=== PATIENT | female | born 1950 | race Caucasian/White ===

== ENCOUNTER 2020-12-16 08:22 | Inpatient (IN) ==
[2020-12-16] MEDS ORDERED: SODIUM CHLORIDE 0.9% 1,000 ML IV STA (10:27)
[2020-12-16] MEDS ORDERED: ONDANSETRON 4 MG/2 ML VIAL IV STA (10:29)
[2020-12-16] MEDS ORDERED: MORPHINE 4 MG/1 ML VIAL IV ONE (10:29)
[2020-12-16 10:40] LABS: Basophils # 0.1 10*3/uL (0.0-0.2); Basophils % 0.4 % (0.0-0.8); Eosinophils % 0.1 % (0.00-10.9); Hematocrit 42.7 VOL% (35.7-47.0); Hemoglobin 13.8 GM/DL (12.0-16.0); Immature Granulocytes % 0.7 %; Immature Granulocytes Absolute 0.13 #; Lymphocytes # 1.2 10*3/uL (1.4-4.0); Lymphocytes % 6.5 % (21.3-54.2); Mean Corpuscular HGB Conc 32.3 GM/DL (32-36); Mean Corpuscular Volume 92.6 FL (87-102); Mean Platelet Volume 9.3 FL (9.6-12.0); Monocytes % 4.6 % (1.7-12.7); Neutrophils % 87.7 % (38.7-73.9); Platelet Count 341 T/CUMM (130-400); Red Blood Count 4.61 MC/CUMM (3.8-5.5); Red Cell Distribution Width 13.7 % (9.3-17.3); White Blood Count 18.3 T/CUMM (4-12)
[2020-12-16 10:58] LABS: Bacteria,Urine Occasional /HPF (Few); Bilirubin,Urine Negative (Negative); Blood, Urine Negative (Negative); Glucose,Urine (UA) >=500 mg/dL (Negative); Ketones,Urine 20 mg/dL (Negative); Mucus,Urine Few /LPF (Occasional); Nitrite,Urine Negative (Negative); Protein,Urine 30 MG/DL; RBC,Urine 12 /HPF (0-4); Squamous Epithelial Cell,Urine Occasional /HPF (0-10); Urine Appearance CLOUDY (Clear); Urine Color Amber (Yellow); Urine Specific Gravity 1.023 (1.001-1.035)
[2020-12-16 10:59] LABS: Alanine Aminotransferase 22 U/L (13-56); Albumin 3.7 G/DL (3.4-5.0); Alkaline Phosphatase 105 U/L (45-117); Amylase 21 U/L (25-115); Aspartate Amino Transferase 15 U/L (0-37); Blood Urea Nitrogen 13 MG/DL (7-18); Calcium 9.3 MG/DL (8.5-10.1); Carbon Dioxide 29 MMOL/L (21-32); Estimated Glom Filtration Rate 80 ML/MIN; Glucose 296 MG/DL (74-106); Osmolality,Calculated 276.4 MOS/KG (273-304); Potassium 4.2 MMOL/L (3.5-5.1); Sodium 133 MMOL/L (136-145); Total Protein 8.3 G/DL (6.4-8.2)
[2020-12-16] MEDS ORDERED: PIPERACILLIN/TAZOBACTAM 3,375 MG in SODIUM CHLORIDE 0.9% 100 ML IV STA (11:56)
[2020-12-16] MEDS ORDERED: ALBUTEROL/IPRATROPIUM 3 ML NEB RESP TX PRN (13:31)
[2020-12-16] MEDS ORDERED: ONDANSETRON 4 MG/2 ML VIAL IV PRN (13:31)
[2020-12-16] MEDS ORDERED: BISACODYL 5 MG TABLET PO PRN (13:31)
[2020-12-16] MEDS ORDERED: HYDROmorphone 2 MG/1 ML VIAL IV PRN ×2 (13:31)
[2020-12-16] MEDS ORDERED: GLUCAGON 1 MG VIAL IM PRN (13:42)
[2020-12-16] MEDS ORDERED: DEXTROSE 50% 25 GM/50 ML VIAL IV PRN (13:42)
[2020-12-16] MEDS ORDERED: LIDOCAINE 1%/EPI INJ 20 ML VIAL ONE (13:54)
[2020-12-16] MEDS ORDERED: BUPIVACAINE MPF 0.25% 30 ML VIAL ONE (13:54)
[2020-12-16] MEDS ORDERED: TISSUE ADHESIVE 1 EACH APPLICATOR TOP ONE (13:54)
[2020-12-16] MEDS ORDERED: fentaNYL 100 MCG/2 ML VIAL ONE (13:57)
[2020-12-16] MEDS ORDERED: LIDOCAINE 2% 5 ML VIAL ONE (13:57)
[2020-12-16] MEDS ORDERED: ROCURONIUM 50 MG/5 ML VIAL IV ONE (13:57)
[2020-12-16] MEDS ORDERED: propofoL 200 MG/20 ML VIAL IV ONE (13:57)
[2020-12-16] MEDS: LACTATED RINGERS 1,000 ML IV SCH ×2 (14:30→21:11)
[2020-12-16] MEDS ORDERED: SUCCINYLCHOLINE 200 MG/10 ML VIAL ONE (14:46)
[2020-12-16] MEDS ORDERED: ONDANSETRON 4 MG/2 ML VIAL ONE (15:22)
[2020-12-16] MEDS ORDERED: SODIUM CHLORIDE 0.9% 1,000 ML IV ONE (15:22)
[2020-12-16] MEDS ORDERED: PHENYLEPHRINE 1 MG/10 ML SYRINGE IV ONE (15:22)
[2020-12-16] MEDS ORDERED: DEXAMETHASONE 4 MG/1 ML VIAL ONE (15:23)
[2020-12-16] MEDS ORDERED: KETOROLAC 30 MG/1 ML VIAL ONE (15:28)
[2020-12-16] MEDS ORDERED: GLYCOPYRROLATE 0.4 MG/2 ML VIAL ONE (15:29)
[2020-12-16] MEDS ORDERED: NEOSTIGMINE 10 MG/10 ML VIAL ONE (15:30)
[2020-12-16] MEDS ORDERED: SEVOFLURANE 1 UNIT/15 MINUTE INH ONE (15:32)
[2020-12-16] MEDS: INSULIN LISPRO 100 UNIT/ML SUBCUT SCH (17:15)
[2020-12-16] MEDS: PIPERACILLIN/TAZOBACTAM 3,375 MG in SODIUM CHLORIDE 0.9% 100 ML IV SCH (21:12)
[2020-12-16] MEDS: KETOROLAC 15 MG/1 ML VIAL IV PRN (23:26)
[2020-12-17] MEDS: PIPERACILLIN/TAZOBACTAM 3,375 MG in SODIUM CHLORIDE 0.9% 100 ML IV SCH ×3 (05:00→22:16)
[2020-12-17 06:02] LABS: Basophils % 0.1 % (0.0-0.8); Hematocrit 36.2 VOL% (35.7-47.0); Immature Granulocytes % 0.3 %; Immature Granulocytes Absolute 0.04 #; Lymphocytes # 0.9 10*3/uL (1.4-4.0); Lymphocytes % 7.3 % (21.3-54.2); Mean Corpuscular Volume 94.8 FL (87-102); Mean Platelet Volume 9.4 FL (9.6-12.0); Monocytes % 4.1 % (1.7-12.7); Neutrophils % 88.2 % (38.7-73.9); Red Blood Count 3.82 MC/CUMM (3.8-5.5); Red Cell Distribution Width 13.8 % (9.3-17.3)
[2020-12-17 06:21] LABS: Albumin 2.7 G/DL (3.4-5.0); Bilirubin,Total 2.4 MG/DL (0.2-1.0); Calcium 8.3 MG/DL (8.5-10.1); Osmolality,Calculated 282.4 MOS/KG (273-304); Potassium 4.3 MMOL/L (3.5-5.1); Total Protein 6.6 G/DL (6.4-8.2)
[2020-12-17 06:26] LABS: Hemoglobin 11.6 GM/DL (12.0-16.0); Platelet Count 262 T/CUMM (130-400); White Blood Count 12.1 T/CUMM (4-12)
[2020-12-17 07:24] LABS: Band Neutrophils 16 % (0-10); Lymphocytes 4 % (20-55); Segmented Neutrophils 77 % (50-85); Total Cells Counted 100
[2020-12-17 07:25] LABS: Hypochromasia Slight; Microcytosis 1+
[2020-12-17 07:26] LABS: Platelet Estimate Normal
[2020-12-17] MEDS: INSULIN LISPRO 100 UNIT/ML SUBCUT SCH ×3 (09:50→16:03)
[2020-12-17] MEDS: PANTOPRAZOLE 40 MG TABLET PO SCH (09:50)
[2020-12-17] MEDS: KETOROLAC 15 MG/1 ML VIAL IV PRN (09:51)
[2020-12-17] MEDS: LACTATED RINGERS 1,000 ML IV SCH ×3 (12:53→22:22)
[2020-12-18] MEDS: KETOROLAC 15 MG/1 ML VIAL IV PRN ×2 (00:06→15:39)
[2020-12-18] MEDS: PIPERACILLIN/TAZOBACTAM 3,375 MG in SODIUM CHLORIDE 0.9% 100 ML IV SCH ×3 (04:58→20:43)
[2020-12-18 05:25] LABS: Basophils % 0.2 % (0.0-0.8); Eosinophils % 0.1 % (0.00-10.9); Hematocrit 34.4 VOL% (35.7-47.0); Hemoglobin 10.8 GM/DL (12.0-16.0); Immature Granulocytes Absolute 0.13 #; Lymphocytes # 1.1 10*3/uL (1.4-4.0); Lymphocytes % 8.4 % (21.3-54.2); Mean Corpuscular HGB Conc 31.4 GM/DL (32-36); Mean Platelet Volume 9.5 FL (9.6-12.0); Monocytes % 2.5 % (1.7-12.7); Neutrophils % 87.8 % (38.7-73.9); Platelet Count 238 T/CUMM (130-400); Red Blood Count 3.62 MC/CUMM (3.8-5.5); Red Cell Distribution Width 13.5 % (9.3-17.3); White Blood Count 13.4 T/CUMM (4-12)
[2020-12-18 05:58] LABS: Calcium 8.5 MG/DL (8.5-10.1); Osmolality,Calculated 274.5 MOS/KG (273-304); Potassium 3.8 MMOL/L (3.5-5.1)
[2020-12-18 06:10] LABS: Band Neutrophils 6 % (0-10); Hypochromasia Slight; Lymphocytes 6 % (20-55); Microcytosis 1+; Polychromasia Slight; Promyelocytes 1 %; Segmented Neutrophils 84 % (50-85); Total Cells Counted 100
[2020-12-18] MEDS: ACETAMINOPHEN 325 MG TABLET PO PRN (06:37)
[2020-12-18] MEDS: PANTOPRAZOLE 40 MG TABLET PO SCH (08:51)
[2020-12-18] MEDS: INSULIN LISPRO 100 UNIT/ML SUBCUT SCH ×3 (08:53→16:40)
[2020-12-18] MEDS: LACTATED RINGERS 1,000 ML IV SCH (13:50)
[2020-12-18] MEDS: DOCUSATE SODIUM 100 MG CAPSULE PO SCH (20:43)
[2020-12-19] MEDS: LACTATED RINGERS 1,000 ML IV SCH ×3 (00:07→07:32)
[2020-12-19] MEDS: PIPERACILLIN/TAZOBACTAM 3,375 MG in SODIUM CHLORIDE 0.9% 100 ML IV SCH ×3 (04:29→22:01)
[2020-12-19 05:54] LABS: Basophils % 0.4 % (0.0-0.8); Eosinophils # 0.1 10*3/uL (0.0-0.87); Eosinophils % 1.1 % (0.00-10.9); Hemoglobin 10.4 GM/DL (12.0-16.0); Immature Granulocytes % 0.7 %; Immature Granulocytes Absolute 0.08 #; Lymphocytes % 8.5 % (21.3-54.2); Mean Corpuscular HGB Conc 31.5 GM/DL (32-36); Mean Corpuscular Volume 94.8 FL (87-102); Mean Platelet Volume 9.6 FL (9.6-12.0); Monocytes % 4.4 % (1.7-12.7); Neutrophils % 84.9 % (38.7-73.9); Platelet Count 255 T/CUMM (130-400); Red Blood Count 3.48 MC/CUMM (3.8-5.5); Red Cell Distribution Width 13.6 % (9.3-17.3); White Blood Count 11.4 T/CUMM (4-12)
[2020-12-19 06:11] LABS: Calcium 8.8 MG/DL (8.5-10.1); Osmolality,Calculated 289.8 MOS/KG (273-304); Potassium 3.9 MMOL/L (3.5-5.1)
[2020-12-19 06:19] LABS: Band Neutrophils 1 % (0-10); Hypochromasia 1+; Lymphocytes 4 % (20-55); Microcytosis 1+; Platelet Estimate Adequate; Segmented Neutrophils 92 % (50-85); Total Cells Counted 100
[2020-12-19] MEDS: DOCUSATE SODIUM 100 MG CAPSULE PO SCH ×2 (08:59→22:01)
[2020-12-19] MEDS: amLODIPine 10 MG TABLET PO SCH (08:59)
[2020-12-19] MEDS: OXYBUTYNIN 5 MG TABLET PO SCH (08:59)
[2020-12-19] MEDS: PANTOPRAZOLE 40 MG TABLET PO SCH (08:59)
[2020-12-19] MEDS: INSULIN LISPRO 100 UNIT/ML SUBCUT SCH ×3 (09:00→16:32)
[2020-12-19] MEDS: POLYETHYLENE GLYCOL POWDER 17 GM PACK PO SCH (09:00)
[2020-12-19] MEDS: SERTRALINE 50 MG TABLET PO SCH (09:00)
[2020-12-19] MEDS ORDERED: hydrALAZINE 25 MG TABLET PO SCH (09:00)
[2020-12-19] MEDS: ATORVASTATIN 10 MG TABLET PO SCH (09:04)
[2020-12-19] MEDS ORDERED: TUBERCULIN SKIN TEST 0.1 ML SYRINGE INTRADERM ONE (10:43)
[2020-12-19] MEDS: ACETAMINOPHEN 325 MG TABLET PO PRN (14:32)
[2020-12-19] MEDS: GLIMEPIRIDE 2 MG TABLET PO SCH (16:32)
[2020-12-19] MEDS ORDERED: INSULIN GLARGINE 100 UNIT/ML SUBCUT SCH (21:00)
[2020-12-19] MEDS ORDERED: MECLIZINE 25 MG TABLET PO SCH (21:00)
[2020-12-19] MEDS ORDERED: DOCUSATE/SENNA 50-8.6 MG TABLET PO SCH (21:00)
[2020-12-20 06:23] LABS: Basophils % 0.4 % (0.0-0.8); Eosinophils # 0.1 10*3/uL (0.0-0.87); Eosinophils % 1.1 % (0.00-10.9); Hematocrit 31.7 VOL% (35.7-47.0); Hemoglobin 10.7 GM/DL (12.0-16.0); Immature Granulocytes % 1.3 %; Immature Granulocytes Absolute 0.15 #; Lymphocytes # 1.1 10*3/uL (1.4-4.0); Lymphocytes % 9.6 % (21.3-54.2); Mean Corpuscular HGB Conc 33.8 GM/DL (32-36); Mean Corpuscular Volume 91.1 FL (87-102); Mean Platelet Volume 9.3 FL (9.6-12.0); Monocytes % 6.2 % (1.7-12.7); Neutrophils % 81.4 % (38.7-73.9); Platelet Count 283 T/CUMM (130-400); Red Blood Count 3.48 MC/CUMM (3.8-5.5); Red Cell Distribution Width 13.7 % (9.3-17.3); White Blood Count 11.4 T/CUMM (4-12)
[2020-12-20 06:38] LABS: Albumin 2.1 G/DL (3.4-5.0); Bilirubin,Total 1.6 MG/DL (0.2-1.0); Calcium 8.7 MG/DL (8.5-10.1); Osmolality,Calculated 278.1 MOS/KG (273-304); Potassium 3.5 MMOL/L (3.5-5.1); Total Protein 6.4 G/DL (6.4-8.2)
[2020-12-20 06:52] LABS: Hypochromasia 1+; Microcytosis 1+
[2020-12-20 06:53] LABS: Platelet Estimate Normal
[2020-12-20] MEDS: PIPERACILLIN/TAZOBACTAM 3,375 MG in SODIUM CHLORIDE 0.9% 100 ML IV SCH (09:28)
[2020-12-20] MEDS: GLIMEPIRIDE 2 MG TABLET PO SCH (09:28)
[2020-12-20] MEDS: DOCUSATE SODIUM 100 MG CAPSULE PO SCH (09:28)
[2020-12-20] MEDS: PANTOPRAZOLE 40 MG TABLET PO SCH (09:29)
[2020-12-20] MEDS: ATORVASTATIN 10 MG TABLET PO SCH (09:29)
[2020-12-20] MEDS: SERTRALINE 50 MG TABLET PO SCH (09:29)
[2020-12-20] MEDS: amLODIPine 10 MG TABLET PO SCH (09:29)
[2020-12-20] MEDS: OXYBUTYNIN 5 MG TABLET PO SCH (09:29)
[2020-12-20] MEDS: INSULIN LISPRO 100 UNIT/ML SUBCUT SCH (09:29)
[2020-12-20] MEDS: POLYETHYLENE GLYCOL POWDER 17 GM PACK PO SCH (09:30)
[2020-12-20] MEDS: ACETAMINOPHEN 325 MG TABLET PO PRN (10:41)
[2020-12-20 11:28] VITALS: BP 163/61
== END 2020-12-20 13:33 | disposition swing bed (61) | DRG 339 ==
LOC: N.ED 08:22 → N.EDINP 13:31 → N.3E 14:35
PROVIDERS: ADMIT Surgery; ATTEND Surgery

== ENCOUNTER 2021-01-02 00:36 | Inpatient (IN) ==
[2021-01-02] MEDS ORDERED: SODIUM CHLORIDE 0.9% 500 ML IV STA (01:06)
[2021-01-02] MEDS ORDERED: PIPERACILLIN/TAZOBACTAM 3,375 MG in SODIUM CHLORIDE 0.9% 100 ML IV STA (01:06)
[2021-01-02] MEDS ORDERED: ALBUTEROL/IPRATROPIUM 3 ML NEB RESP TX STA (01:06)
[2021-01-02] MEDS ORDERED: ACETAMINOPHEN 500 MG TABLET PO STA (01:06)
[2021-01-02 01:10] LABS: Basophils # 0.1 10*3/uL (0.0-0.2); Basophils % 0.4 % (0.0-0.8); Eosinophils % 0.1 % (0.00-10.9); Hematocrit 32.5 VOL% (35.7-47.0); Hemoglobin 10.3 GM/DL (12.0-16.0); Immature Granulocytes % 0.8 %; Immature Granulocytes Absolute 0.16 #; Lymphocytes # 0.4 10*3/uL (1.4-4.0); Lymphocytes % 2.3 % (21.3-54.2); Mean Corpuscular HGB Conc 31.7 GM/DL (32-36); Mean Corpuscular Volume 92.6 FL (87-102); Mean Platelet Volume 8.9 FL (9.6-12.0); Monocytes % 2.1 % (1.7-12.7); Neutrophils % 94.3 % (38.7-73.9); Platelet Count 537 T/CUMM (130-400); Red Blood Count 3.51 MC/CUMM (3.8-5.5); Red Cell Distribution Width 14.1 % (9.3-17.3); White Blood Count 19.3 T/CUMM (4-12)
[2021-01-02 01:19] LABS: Bilirubin,Total 0.7 MG/DL (0.2-1.0); Calcium 9.1 MG/DL (8.5-10.1); Osmolality,Calculated 271.5 MOS/KG (273-304); Potassium 4.1 MMOL/L (3.5-5.1)
[2021-01-02 01:27] LABS: PT Patient Result 11.1 SECS (10.5-12.0)
[2021-01-02] MEDS ORDERED: ONDANSETRON 4 MG/2 ML VIAL IV STA (01:44)
[2021-01-02] MEDS ORDERED: ONDANSETRON 4 MG/2 ML VIAL ONE (01:45)
[2021-01-02] MEDS ORDERED: ENOXAPARIN 100 MG/ML SYRINGE SUBCUT STA (02:33)
[2021-01-02 02:56] LABS: Anisocytosis Slight; Band Neutrophils 4 % (0-10); Lymphocytes 3 % (20-55); Macrocytosis Slight; Platelet Estimate Increased; Segmented Neutrophils 91 % (50-85); Total Cells Counted 100
[2021-01-02] MEDS ORDERED: DEXTROSE 50% 25 GM/50 ML VIAL IV PRN (03:40)
[2021-01-02] MEDS ORDERED: GLUCAGON 1 MG VIAL IM PRN (03:40)
[2021-01-02] MEDS ORDERED: ONDANSETRON 4 MG TABLET PO PRN (03:40)
[2021-01-02] MEDS ORDERED: ACETAMINOPHEN 500 MG TABLET PO PRN (03:52)
[2021-01-02] MEDS: SODIUM CHLORIDE 0.9% 1,000 ML IV SCH ×2 (04:00→17:39)
[2021-01-02] MEDS: ALBUTEROL/IPRATROPIUM 3 ML NEB RESP TX SCH ×6 (04:01→23:40)
[2021-01-02 04:32] LABS: Bilirubin,Urine Negative (Negative); Blood, Urine Negative (Negative); Glucose,Urine (UA) 50 mg/dL (Negative); Ketones,Urine Negative (Negative); Mucus,Urine Occasional /LPF (Occasional); Nitrite,Urine Negative (Negative); Protein,Urine Negative; RBC,Urine 1 /HPF (0-4); Squamous Epithelial Cell,Urine Occasional /HPF (0-10); Urine Appearance CLEAR (Clear); Urine Color Yellow (Yellow); Urine Specific Gravity 1.009 (1.001-1.035); Urine Urobilinogen < 2.0 EU/DL (0.2-1.0)
[2021-01-02 06:05] LABS: Basophils # 0.1 10*3/uL (0.0-0.2); Basophils % 0.3 % (0.0-0.8); Hematocrit 29.9 VOL% (35.7-47.0); Hemoglobin 9.7 GM/DL (12.0-16.0); Immature Granulocytes % 0.7 %; Immature Granulocytes Absolute 0.15 #; Lymphocytes % 4.6 % (21.3-54.2); Mean Corpuscular HGB Conc 32.4 GM/DL (32-36); Monocytes % 4.6 % (1.7-12.7); Neutrophils % 89.8 % (38.7-73.9); Platelet Count 494 T/CUMM (130-400); Red Blood Count 3.25 MC/CUMM (3.8-5.5); Red Cell Distribution Width 14.2 % (9.3-17.3); White Blood Count 22.5 T/CUMM (4-12)
[2021-01-02] MEDS: INSULIN REGULAR 100 UNIT/ML SUBCUT SCH ×3 (06:17→19:03)
[2021-01-02 06:23] LABS: Albumin 1.8 G/DL (3.4-5.0); Bilirubin,Total 0.9 MG/DL (0.2-1.0); Calcium 8.9 MG/DL (8.5-10.1); Total Protein 7.4 G/DL (6.4-8.2)
[2021-01-02 06:27] LABS: Hypochromasia 1+; Lymphocytes 5 % (20-55); Microcytosis 1+; Platelet Estimate Adequate; Segmented Neutrophils 92 % (50-85); Total Cells Counted 100
[2021-01-02] MEDS: GLIMEPIRIDE 2 MG TABLET PO SCH ×2 (08:46→17:38)
[2021-01-02] MEDS: MAGNESIUM GLUCONATE 500 MG TABLET PO SCH (08:46)
[2021-01-02] MEDS: MELOXICAM 7.5 MG TABLET PO SCH (08:46)
[2021-01-02] MEDS: OXYBUTYNIN 5 MG TABLET PO SCH (08:47)
[2021-01-02] MEDS: amLODIPine 10 MG TABLET PO SCH (08:47)
[2021-01-02] MEDS: FERROUS SULFATE 325 MG TABLET PO SCH (08:47)
[2021-01-02] MEDS: metFORMIN 500 MG TABLET PO SCH ×2 (08:47→17:38)
[2021-01-02] MEDS: SERTRALINE 25 MG TABLET PO SCH (08:47)
[2021-01-02] MEDS: hydrALAZINE 25 MG TABLET PO SCH ×2 (08:47→21:46)
[2021-01-02] MEDS: PANTOPRAZOLE 40 MG VIAL IV SCH (08:48)
[2021-01-02] MEDS: PIPERACILLIN/TAZOBACTAM 3,375 MG in SODIUM CHLORIDE 0.9% 100 ML IV SCH ×2 (09:49→17:38)
[2021-01-02] MEDS ORDERED: ZINC OXIDE PASTE 113 GM TUBE TOP PRN (13:08)
[2021-01-02] MEDS: MECLIZINE 25 MG TABLET PO SCH (21:46)
[2021-01-02] MEDS: ATORVASTATIN 10 MG TABLET PO SCH (21:46)
[2021-01-02] MEDS: INSULIN GLARGINE 100 UNIT/ML SUBCUT SCH (21:46)
[2021-01-02] MEDS: ENOXAPARIN 40 MG/0.4 ML SYRINGE SUBCUT SCH (21:47)
[2021-01-02] MEDS: DOCUSATE/SENNA 50-8.6 MG TABLET PO SCH (22:49)
[2021-01-03] MEDS: ALBUTEROL/IPRATROPIUM 3 ML NEB RESP TX SCH ×6 (02:40→23:24)
[2021-01-03] MEDS: ALBUMIN 25% 25 GM/100 ML VIAL IV SCH ×3 (02:59→17:27)
[2021-01-03] MEDS: SODIUM CHLORIDE 0.9% 1,000 ML IV SCH ×2 (02:59→13:23)
[2021-01-03] MEDS: PIPERACILLIN/TAZOBACTAM 3,375 MG in SODIUM CHLORIDE 0.9% 100 ML IV SCH ×3 (03:00→18:09)
[2021-01-03] MEDS: INSULIN REGULAR 100 UNIT/ML SUBCUT SCH ×4 (03:02→18:42)
[2021-01-03 06:33] LABS: Basophils # 0.1 10*3/uL (0.0-0.2); Basophils % 0.4 % (0.0-0.8); Eosinophils % 0.2 % (0.00-10.9); Hematocrit 29.4 VOL% (35.7-47.0); Hemoglobin 9.4 GM/DL (12.0-16.0); Immature Granulocytes % 0.5 %; Immature Granulocytes Absolute 0.07 #; Lymphocytes # 1.2 10*3/uL (1.4-4.0); Lymphocytes % 8.7 % (21.3-54.2); Mean Corpuscular Volume 91.6 FL (87-102); Mean Platelet Volume 8.8 FL (9.6-12.0); Monocytes % 7.6 % (1.7-12.7); Neutrophils % 82.6 % (38.7-73.9); Platelet Count 484 T/CUMM (130-400); Red Blood Count 3.21 MC/CUMM (3.8-5.5); Red Cell Distribution Width 14.1 % (9.3-17.3); White Blood Count 13.2 T/CUMM (4-12)
[2021-01-03 06:47] LABS: Calcium 8.9 MG/DL (8.5-10.1); Osmolality,Calculated 266.1 MOS/KG (273-304); Potassium 3.6 MMOL/L (3.5-5.1)
[2021-01-03] MEDS: ONDANSETRON 4 MG/2 ML VIAL IV PRN ×2 (07:22→13:28)
[2021-01-03] MEDS: PANTOPRAZOLE 40 MG VIAL IV SCH (08:58)
[2021-01-03] MEDS ORDERED: DIAZEPAM 5 MG TABLET PO ONE (08:58)
[2021-01-03] MEDS: amLODIPine 10 MG TABLET PO SCH (08:59)
[2021-01-03] MEDS: SERTRALINE 25 MG TABLET PO SCH (08:59)
[2021-01-03] MEDS: OXYBUTYNIN 5 MG TABLET PO SCH (08:59)
[2021-01-03] MEDS: MELOXICAM 7.5 MG TABLET PO SCH (09:00)
[2021-01-03 09:27] LABS: PT Patient Result 11.3 SECS (10.5-12.0)
[2021-01-03] MEDS: metFORMIN 500 MG TABLET PO SCH ×2 (09:53→17:19)
[2021-01-03] MEDS: GLIMEPIRIDE 2 MG TABLET PO SCH ×2 (09:53→17:19)
[2021-01-03] MEDS: ACETAMINOPHEN 325 MG TABLET PO PRN (09:55)
[2021-01-03] MEDS ORDERED: fentaNYL 100 MCG/2 ML VIAL IV ONE (11:30)
[2021-01-03] MEDS ORDERED: fentaNYL 100 MCG/2 ML VIAL ONE (11:39)
[2021-01-03] MEDS ORDERED: MIDAZOLAM 2 MG/2 ML VIAL ONE (11:39)
[2021-01-03] MEDS: MAGNESIUM GLUCONATE 500 MG TABLET PO SCH (17:27)
[2021-01-03] MEDS: FERROUS SULFATE 325 MG TABLET PO SCH (17:27)
[2021-01-03] MEDS: ENOXAPARIN 40 MG/0.4 ML SYRINGE SUBCUT SCH (21:17)
[2021-01-03] MEDS: MECLIZINE 25 MG TABLET PO SCH (21:17)
[2021-01-03] MEDS: ATORVASTATIN 10 MG TABLET PO SCH (21:17)
[2021-01-03] MEDS: DOCUSATE/SENNA 50-8.6 MG TABLET PO SCH (21:17)
[2021-01-04] MEDS: INSULIN GLARGINE 100 UNIT/ML SUBCUT SCH ×2 (00:26→21:15)
[2021-01-04] MEDS: ALBUMIN 25% 25 GM/100 ML VIAL IV SCH (00:29)
[2021-01-04] MEDS: INSULIN REGULAR 100 UNIT/ML SUBCUT SCH ×5 (00:31→23:43)
[2021-01-04] MEDS: SODIUM CHLORIDE 0.9% 1,000 ML IV SCH ×2 (00:31→07:48)
[2021-01-04] MEDS: PIPERACILLIN/TAZOBACTAM 3,375 MG in SODIUM CHLORIDE 0.9% 100 ML IV SCH ×3 (02:45→17:25)
[2021-01-04] MEDS: ALBUTEROL/IPRATROPIUM 3 ML NEB RESP TX SCH ×6 (03:33→23:30)
[2021-01-04] MEDS: GLIMEPIRIDE 2 MG TABLET PO SCH ×2 (07:45→17:28)
[2021-01-04] MEDS: metFORMIN 500 MG TABLET PO SCH ×2 (07:45→17:28)
[2021-01-04 07:51] LABS: Basophils # 0.1 10*3/uL (0.0-0.2); Basophils % 0.5 % (0.0-0.8); Eosinophils # 0.1 10*3/uL (0.0-0.87); Eosinophils % 0.7 % (0.00-10.9); Hematocrit 27.6 VOL% (35.7-47.0); Hemoglobin 8.7 GM/DL (12.0-16.0); Immature Granulocytes % 0.7 %; Immature Granulocytes Absolute 0.12 #; Lymphocytes # 1.8 10*3/uL (1.4-4.0); Mean Corpuscular HGB Conc 31.5 GM/DL (32-36); Mean Corpuscular Volume 93.2 FL (87-102); Mean Platelet Volume 8.8 FL (9.6-12.0); Monocytes % 4.8 % (1.7-12.7); Neutrophils % 83.3 % (38.7-73.9); Platelet Count 354 T/CUMM (130-400); Red Blood Count 2.96 MC/CUMM (3.8-5.5); Red Cell Distribution Width 14.5 % (9.3-17.3); White Blood Count 17.6 T/CUMM (4-12)
[2021-01-04 08:09] LABS: Calcium 8.4 MG/DL (8.5-10.1); Osmolality,Calculated 273.7 MOS/KG (273-304); Potassium 3.4 MMOL/L (3.5-5.1)
[2021-01-04 08:13] LABS: Albumin 2.7 G/DL (3.4-5.0); Bilirubin,Direct 0.2 MG/DL (0.0-0.20); Bilirubin,Indirect 0.6 MG/DL (0.0-1.0); Bilirubin,Total 0.8 MG/DL (0.2-1.0); Total Protein 7.1 G/DL (6.4-8.2)
[2021-01-04] MEDS: PANTOPRAZOLE 40 MG VIAL IV SCH (09:38)
[2021-01-04] MEDS: MELOXICAM 7.5 MG TABLET PO SCH (09:40)
[2021-01-04] MEDS: OXYBUTYNIN 5 MG TABLET PO SCH (09:40)
[2021-01-04] MEDS: MAGNESIUM GLUCONATE 500 MG TABLET PO SCH (09:40)
[2021-01-04] MEDS: SERTRALINE 25 MG TABLET PO SCH (09:40)
[2021-01-04] MEDS: FERROUS SULFATE 325 MG TABLET PO SCH (09:41)
[2021-01-04] MEDS: amLODIPine 10 MG TABLET PO SCH (09:41)
[2021-01-04] MEDS ORDERED: POTASSIUM CHLORIDE 20 MEQ TABLET PO ONE (17:48)
[2021-01-04] MEDS: MECLIZINE 25 MG TABLET PO SCH (21:15)
[2021-01-04] MEDS: ACETAMINOPHEN 325 MG TABLET PO PRN (21:15)
[2021-01-04] MEDS: DOCUSATE/SENNA 50-8.6 MG TABLET PO SCH (21:15)
[2021-01-04] MEDS: ATORVASTATIN 10 MG TABLET PO SCH (21:15)
[2021-01-04] MEDS: ENOXAPARIN 40 MG/0.4 ML SYRINGE SUBCUT SCH (21:15)
[2021-01-05] MEDS: PIPERACILLIN/TAZOBACTAM 3,375 MG in SODIUM CHLORIDE 0.9% 100 ML IV SCH ×3 (01:52→09:45)
[2021-01-05] MEDS: ALBUTEROL/IPRATROPIUM 3 ML NEB RESP TX SCH ×3 (03:38→11:07)
[2021-01-05] MEDS: INSULIN REGULAR 100 UNIT/ML SUBCUT SCH ×2 (05:43→13:19)
[2021-01-05 06:43] LABS: Basophils # 0.1 10*3/uL (0.0-0.2); Basophils % 0.6 % (0.0-0.8); Eosinophils # 0.2 10*3/uL (0.0-0.87); Eosinophils % 1.3 % (0.00-10.9); Hematocrit 29.5 VOL% (35.7-47.0); Hemoglobin 9.3 GM/DL (12.0-16.0); Immature Granulocytes % 0.5 %; Immature Granulocytes Absolute 0.06 #; Lymphocytes # 1.5 10*3/uL (1.4-4.0); Lymphocytes % 13.2 % (21.3-54.2); Mean Corpuscular HGB Conc 31.5 GM/DL (32-36); Mean Corpuscular Volume 93.9 FL (87-102); Mean Platelet Volume 8.8 FL (9.6-12.0); Monocytes % 4.7 % (1.7-12.7); Neutrophils % 79.7 % (38.7-73.9); Platelet Count 393 T/CUMM (130-400); Red Blood Count 3.14 MC/CUMM (3.8-5.5); Red Cell Distribution Width 14.7 % (9.3-17.3); White Blood Count 11.2 T/CUMM (4-12)
[2021-01-05 07:19] LABS: Calcium 8.3 MG/DL (8.5-10.1); Osmolality,Calculated 280.3 MOS/KG (273-304)
[2021-01-05] MEDS: PANTOPRAZOLE 40 MG VIAL IV SCH (08:21)
[2021-01-05] MEDS: MELOXICAM 7.5 MG TABLET PO SCH (08:23)
[2021-01-05] MEDS: FERROUS SULFATE 325 MG TABLET PO SCH (08:23)
[2021-01-05] MEDS: amLODIPine 10 MG TABLET PO SCH (08:23)
[2021-01-05] MEDS: metFORMIN 500 MG TABLET PO SCH (08:23)
[2021-01-05] MEDS: SERTRALINE 25 MG TABLET PO SCH (08:23)
[2021-01-05] MEDS: MAGNESIUM GLUCONATE 500 MG TABLET PO SCH (08:23)
[2021-01-05] MEDS: OXYBUTYNIN 5 MG TABLET PO SCH (08:23)
[2021-01-05] MEDS: GLIMEPIRIDE 2 MG TABLET PO SCH (08:23)
[2021-01-05 12:29] VITALS: BP 167/56
== END 2021-01-05 16:06 | disposition home health service (06) | DRG 441 ==
LOC: EDUNIT# → EDBD → N.ED 00:36 → N.EDINP 02:34 → N.5E 04:05
PROVIDERS: ADMIT Surgery; ATTEND Surgery